=== PATIENT | female | born 1960 | race Caucasian/White ===

== ENCOUNTER 2018-08-09 12:40 | Emergency (ER) | payer OTHER, SELFPAY ==
[2018-08-09 12:49] VITALS: BP 152/81; PULSE 67; RESP 19; O2SAT 100; BMI 29.1
--- NOTE | 2018-08-09 12:52 | DI.RAD.S_ITS ---
PROCEDURE: XR CHEST 1V INDICATIONS: chest pain TECHNIQUE: One view of the chest was acquired. COMPARISON: None. FINDINGS: Surgical changes and devices: None. Lungs and pleura: An incomplete inspiratory result is noted, causing a crowded appearance to the lung markings. No focal infiltrates are seen. No pneumothorax or significant pleural effusions are seen. Mediastinum: Mediastinal contours appear normal. Heart size is normal. Bones and chest wall: No suspicious bony lesions. Overlying soft tissues appear unremarkable. IMPRESSION: Limited portable chest examination, without a significant cardiopulmonary abnormality identified. Dictated by: Samuel Hardy M.D. on 08/09/2018 at 12:13 Approved by: Samuel Hardy M.D. on 08/09/2018 at 12:13
[2018-08-09 13:16] LABS: PTT Partial Thromboplastin Tim 26 SECONDS (26.4-36.2)
[2018-08-09 13:17] LABS: Add Manual Diff / Slide Review NO; Basophils Percent Auto 0.8 % (0-2); Eosinophils Percent Auto 0.8 % (2-4); Hematocrit 40.4 % (36-46); Lymphocytes Percent Auto 22.2 % (25-40); Mean Corpuscular HGB Conc 34.6 % (30-36); Mean Corpuscular Hemoglobin 33.9 PG (26-34); Monocytes Percent Auto 5.9 % (3-14); Neutrophils Absolute Auto 4500 /uL (3000-5900); Neutrophils Percent Auto 70.3 % (50-75); Platelet Count 259 X10^3/uL (150-400); Red Blood Cell Count 4.12 X10^6/uL (4.0-5.2); White Blood Cell Count 6.3 X10^3/uL (4.5-11.0)
[2018-08-09 13:19] LABS: Alanine Aminotransferase 23 IU/L (9-52); Albumin 4.4 g/dL (3.5-5.0); Albumin Globulin Ratio 1.3 (1.0-2.8); Alkaline Phosphatase 47 U/L (38-126); Aspartate Aminotransferase 26 IU/L (14-36); BUN Creatinine Ratio 23.8 (6-22); Bilirubin Total 0.6 mg/dL (0.2-1.3); Blood Urea Nitrogen 19 mg/dL (7-17); Calcium 9.3 mg/dL (8.4-10.2); Carbon Dioxide 32 mmol/L (22-32); Chloride 102 mmol/L (98-107); Creatine Kinase 201 U/L (30-135); Estimated Glomerular Filt Rate > 60.0 mL/min (>60); Globulin 3.3 g/dL (1.7-4.1); Glucose 97 mg/dL (70-100); HEMOLYSIS 18 (0-50); Lipase 94 U/L (23-300); Potassium 3.7 mmol/L (3.4-5.1); Sodium 144 mmol/L (137-145); Total Protein 7.7 g/dL (6.3-8.2)
--- NOTE | 2018-08-09 13:29 | ED_ITS ---
HPI - Chest Pain General Chief Complaint: Chest Pain Stated Complaint: Tightness in chest Time Seen by Provider: 08/09/18 12:54 Source: patient Mode of arrival: ambulatory Limitations: no limitations History of Present Illness HPI narrative: Patient is a 57-year-old female who presents with chest pain off and on for the last 1 month. She is an avid runner it has not stopped her from running. Comes and goes and is mostly on the left side it does not keep her from sleeping it is nonradiating. Sometimes her left arm does her as well but she thinks that might be permanent injury. She was on the phone today with [facility] trying to set up a primary care physician appointment when she told the nurse on the phone of her symptoms she was sent to the ED for further evaluation. She denies any worsening or new chest pain. She does have some discomfort now but it is not bad. complaint: chest pain Onset (ago): week(s) Duration: intermittent Onset: during rest Pain location: left chest Severity: mild Related Data Home Medications Medication Instructions Recorded Confirmed Allergy Medication 1 tab PO DAILY 08/09/18 08/09/18 Calcium 1 tab PO DAILY 08/09/18 08/09/18 Tums 1 dose PO PRN PRN 08/09/18 08/09/18 ibuprofen 1 dose PO PRN PRN 08/09/18 08/09/18 ranitidine HCl 1 dose PO PRN PRN 08/09/18 08/09/18 Allergies Allergy/AdvReac Type Severity Reaction Status Date / Time No Known Drug Allergies Allergy Verified 08/09/18 13:05 Review of Systems Review of Systems GENERAL: Denies chills, fatigue, malaise, fever, sweats, travel HEENT: Denies sinus pain, ear pain, sore throat, difficulty swallowing, neck pain RESPIRATORY: Denies dyspnea, cough, wheezing, hemoptysis, sputum. CARDIOVASCULAR: See HPI GASTROINTESTINAL: Denies nausea, vomiting, abdominal pain, diarrhea, constipation, melena. : Denies dysuria, frequency, incontinence, hematuria, urinary retention, flank pain. MUSCULOSKELETAL: Denies weakness, joint pain, or bony pain SKIN: No rash, no erythema, no pruritus NEUROLOGIC: Denies weakness, dizziness, headache, numbness, change in speech, confusion PSYCHIATRIC: No concerning psychosocial issues. 12 point review of systems is negative except for those stated above and HPI [facility] Medical History Healthy adult (Acute) Family History Mother No problems noted. Social History Smoking Status: Never smoker Exam Initial Vital Signs Initial Vital Signs: Vital Signs Pulse Rate 67 08/09/18 12:49 Respiratory Rate 19 08/09/18 12:49 Blood Pressure 152/81 H 08/09/18 12:49 Pulse Oximetry 100 08/09/18 12:49 GENERAL: Well-appearing, well-nourished and in no acute distress. HEENT: Head atraumatic,EOMI, pupils reactive, face symmetric, moist mucous membranes CARDIOVASCULAR: Regular rate and rhythm without murmurs, rubs or gallops. RESPIRATORY: Breath sounds equal bilaterally, no wheezes rales or rhonchi. ABDOMEN: Soft, nontender. Normoactive bowel sounds all 4 quadrants. No guarding or rebound. : No CVA tenderness EXTREMITIES: Normal range of motion, no clubbing or edema. Neurovascularly intact NEUROLOGICAL: Alert and oriented x4.Normal gait and speech. Cranial nerves II through XII grossly intact. SKIN: Warm, dry, no laceration, no petechiae, no rashes or lesions. Scores HEART Score Heart Score history: Slightly Suspicious Heart Score EKG: Normal Heart Score Age: 45-64 years old Heart Score risk factors: No known risk factors Heart Score troponin: < or = to normal limit Heart Score Total: 1 Course Orders Ordered: ED Orders 08/09/18 12:52 XR chest 1V Stat EKG-12 Lead Stat 08/09/18 12:53 Complete Blood Count AUTO DIFF Stat Comprehensive Metabolic Panel Stat Lipase Stat Partial Thromboplastin Time Stat Prothrombin Time INR Stat Troponin & CK Cardiac Panel Stat Discontinued Medications Pantoprazole Sodium (Protonix) 40 mg IV NOW ONE Stop: 08/09/18 13:28 Last Admin: 08/09/18 13:31 Dose: 40 mg Vital Signs - 8 hr 08/09/18 12:49 08/09/18 14:02 Pulse Rate 67 65 Respiratory Rate 19 14 Blood Pressure 152/81 H Blood Pressure [Left Arm] 119/53 L Pulse Oximetry 100 100 MDM - Chest Pain Lab Data Attestation: I reviewed the patient's lab results. Result diagrams: 08/09/18 12:53 08/09/18 12:53 Lab Results 08/09/18 08/09/18 08/09/18 Range/Units 12:53 12:53 12:53 WBC 6.3 (4.5-11.0) X10^3/uL RBC 4.12 (4.0-5.2) X10^6/uL Hgb 14.0 (12.0-16.0) g/dL Hct 40.4 (36-46) % MCV 98.0 (80-100) fL MCH 33.9 (26-34) PG MCHC 34.6 (30-36) % RDW 13.0 (11.6-14.8) % Plt Count 259 (150-400) X10^3/uL Neut % (Auto) 70.3 (50-75) % Lymph % (Auto) 22.2 L (25-40) % [place] % (Auto) 5.9 (3-14) % Eos % (Auto) 0.8 L (2-4) % Baso % (Auto) 0.8 (0-2) % Neut # (Auto) 4500 (8864-7457) /uL PT 11.0 (10.1-12.7) SECONDS INR 1.0 (0.9-1.3) APTT 26 L (26.4-36.2) SECONDS Sodium 144 (137-145) mmol/L Potassium 3.7 (3.4-5.1) mmol/L Chloride 102 (98-107) mmol/L Carbon Dioxide 32 (22-32) mmol/L BUN 19 H (7-17) mg/dL Creatinine 0.80 (0.52-1.04) mg/dL Estimated GFR > 60.0 (>60) mL/min BUN/Creatinine Ratio 23.8 H (6-22) Glucose 97 (70-100) mg/dL Calcium 9.3 (8.4-10.2) mg/dL Total Bilirubin 0.6 (0.2-1.3) mg/dL AST 26 (14-36) IU/L ALT 23 (9-52) IU/L Alkaline Phosphatase 47 (38-126) U/L Total Creatine Kinase 201 H (30-135) U/L CK-MB (CK-2) 3.98 H (<2.37) ng/mL CK-MB (CK-2) Rel Index 2.0 (1.5-5.0) % Troponin I < 0.012 (0.01-0.034) ng/mL Total Protein 7.7 (6.3-8.2) g/dL Albumin 4.4 (3.5-5.0) g/dL Globulin 3.3 (1.7-4.1) g/dL Albumin/Globulin Ratio 1.3 (1.0-2.8) Lipase 94 (23-300) U/L Imaging Data Chest x-ray: Radiologist's impression: PROCEDURE: XR CHEST 1V INDICATIONS: chest pain TECHNIQUE: One view of the chest was acquired. COMPARISON: None. FINDINGS: Surgical changes and devices: None. Lungs and pleura: An incomplete inspiratory result is noted, causing a crowded appearance to the lung markings. No focal infiltrates are seen. No pneumothorax or significant pleural effusions are seen. Mediastinum: Mediastinal contours appear normal. Heart size is normal. Bones and chest wall: No suspicious bony lesions. Overlying soft tissues appear unremarkable. IMPRESSION: Limited portable chest examination, without a significant cardiopulmonary abnormality identified. Dictated by: Samuel Hardy M.D. on 08/09/2018 at 12:13 ECG Data Attestation: I personally reviewed and interpreted this ECG as follows: Prior ECG tracings: available for review Interpretation: Normal sinus rhythm rate [address] changes or T-wave inversions ID interval 157 QRS 105 QTC 435 no priors to compare MDM Narrative Medical decision making narrative: Patient has a negative troponin. Chest pain consistent with cardiac. She has appointment with a PCP in ever rate. Discharge Plan Departure Patient Disposition: Home Clinical Impression: Atypical chest pain Discharge Date/Time: 08/09/18 14:13 Interventions: ED Discharge Assessment Last Done: 08/09/18 14:13 Instructions: DI for Atypical Chest Pain Activity Restrictions/Additional Instructions: *You have been diagnosed with atypical chest *What to do: May still require further cardiac evaluation and testing but this can be done as an outpatient. Today blood work EKG and chest x-ray within normal limits. *Continue to take medications as directed *Follow up with your primary care provider in 2-3 days *Return to ER if you should have increased or new worsening chest pain or any new, worsening or concerning symptoms Prescriptions: No Action Allergy Medication 1 tab PO DAILY RF: 0 ranitidine HCl 75 mg Tablet 1 dose PO PRN PRN (Reason: Indigestion) RF: 0 ibuprofen 200 mg Tablet 1 dose PO PRN PRN (Reason: pain) RF: 0 Calcium 1 tab PO DAILY RF: 0 Tums 1 dose PO PRN PRN (Reason: Indigestion) RF: 0
[2018-08-09] MEDS: PANTOPRAZOLE 40 MG VIAL IV (13:31)
[2018-08-09 13:34] LABS: Creatine Kinase MB 3.98 ng/mL (<2.37); Troponin I < 0.012 ng/mL (0.01-0.034)
[2018-08-09 14:02] VITALS: BP 119/53; PULSE 65; RESP 14; O2SAT 100
== END 2018-08-09 14:13 | disposition home or self-care (01) ==
PROVIDERS: Emergency Provider Emergency Medicine
DX: R07.89 Other chest pain (principal)
CPT/HCPCS: 36591; 71045; 80053; 82550; 82553; 83690; 84484; 85025; 85610; 85730; 93005; 96374; 99283; 99285; C9113

== ENCOUNTER → 2021-02-07 10:52 | Outpatient (CLI) | payer OTHER, SELFPAY ==
[2021-02-07] MEDS: COVID-19 VACC #1, MRNA(MOD) 100 MCG/0.5 ML VIAL IM (11:01)
== END ==
PROVIDERS: Visit Provider Internal Medicine
DX: Z23 Encounter for immunization (principal)
CPT/HCPCS: 0011A; 91301

== ENCOUNTER → 2021-03-07 12:01 | Outpatient (CLI) | payer OTHER, SELFPAY ==
[2021-03-07] MEDS: COVID-19 VACC #2, MRNA(MOD) 100 MCG/0.5 ML VIAL IM (12:06)
== END ==
PROVIDERS: Visit Provider Internal Medicine
DX: Z23 Encounter for immunization (principal)
CPT/HCPCS: 0012A; 91301

== ENCOUNTER → 2021-08-10 13:26 | Outpatient (CLI) | payer OTHER, SELFPAY ==
[2021-08-10 14:05] LABS: COVID19 -Nasal RAPID Negative (Negative)
== END ==
PROVIDERS: Visit Provider Physician Assistant
DX: Z20.822 Contact with and (suspected) exposure to COVID-19 (principal); R05.9 Cough, unspecified; R51.9 Headache, unspecified
CPT/HCPCS: 87635

== ENCOUNTER → 2024-04-21 14:58 | Outpatient (CLI) | payer OTHER, SELFPAY ==
--- NOTE | 2024-04-21 | DI.RAD.S_ITS ---
PROCEDURE: XR DEXA AXIAL SKELETON INDICATIONS: osteoporosis screening COMPARISON: None. FINDINGS: Lumbar Spine: Bone mineral density 0.857 g/cm2, T score -1.7. Left Hip: Bone mineral density 0.953 g/cm2, T score 0.1. Left Femoral Neck: Bone mineral density is 0.82 g/cm2, T score -0.3. Right Hip: Bone mineral density 0.936 g/cm2, T score 0. Right Femoral Neck: Bone mineral density 0.849 g/cm2, T score 0.0. Fracture Risk Calculation (when applicable): 10-year fracture risk of a major osteoporotic fracture 7.1% and of a hip fracture 0.3%. (T score greater or equal to -1.0 to: NORMAL) (T score from -1.1 to -2.4: OSTEOPENIA) (T score less than or equal to -2.5: OSTEOPOROSIS) IMPRESSION: Osteopenia Follow-up guidelines as follows: Osteoporosis: Consider a repeat DEXA and Vertebral Fracture Assessment (VFA) exam in 2 years or sooner if medically necessary, to reassess this patient's status. Osteopenia: Consider a repeat DEXA in 2-3 years to reassess this patient's status, or if there is a new clinical indication. Normal: Consider a repeat DEXA in 5 years or sooner, or if there is a new clinical indication. All treatment decisions require clinical judgment and consideration of individual patient factors, including patient preferences, comorbidities, previous drug use, risk factors not captured in the FRAX model (e.g., frailty, falls, vitamin D deficiency, increased bone turnover, interval significant decline in bone density ) and possible under- or over-estimation of fracture risk by FRAX. In addition, the NOF Guide recommends that FDA-approved medical therapies be considered in postmenopausal women and men age >= 50 years with a: * Hip or vertebral (clinical or morphometric) fracture * T-score of <=-2.5 at the spine or hip * Ten-year fracture probability by FRAX of >= 3% for hip fracture or >=20% for major osteoporotic fracture. People with diagnosed cases of osteoporosis or at high risk for fracture should have regular bone mineral density tests. For patients eligible for Medicare, routine testing is allowed once every 2 years. The testing frequency can be increased to one year for patients who have rapidly progressing disease, those who are receiving or discontinuing medical therapy to restore bone mass, or have additional risk factors. Dictated by: Quincy Stoddard M.D. on 04/21/2024 at 17:46 Approved by: Quincy Stoddard M.D. on 04/21/2024 at 17:48
== END ==
PROVIDERS: PCP Family Medicine; Referring Provider Physician Assistant; Visit Provider Physician Assistant
DX: Z13.820 Encounter for screening for osteoporosis (principal); M85.88 Other specified disorders of bone density and structure, other site
CPT/HCPCS: 77080

== ENCOUNTER → 2024-12-15 10:43 | Outpatient (CLI) | payer OTHER, SELFPAY ==
--- NOTE | 2024-12-15 10:44 | DI.RAD.S_ITS ---
PROCEDURE: XR RIBS RT MIN 3V W CXR 1V INDICATIONS: fall 4 days ago pain @ lateral breast TECHNIQUE: 2 views of the ribs were acquired, along with a single view chest. COMPARISON: None. FINDINGS: Heart, mediastinum and pulmonary vascular: Heart is normal in size and configuration. Mediastinum is unremarkable. Pulmonary vascular is normal. Lungs: Clear Pleural spaces: Normal-no effusions or pneumothorax. Bones and soft tissues: No right rib fracture identified. Bones are normal IMPRESSION: Normal chest and right ribs Dictated by: Rafael Molina M.D. on 12/16/2024 at 11:31 Approved by: Rafael Molina M.D. on 12/16/2024 at 11:32
--- NOTE | 2024-12-15 10:44 | DI.RAD.S_ITS ---
PROCEDURE: XR TIBIA FUBULA RT 2V INDICATIONS: fall right side, pain proximal fibula TECHNIQUE: 2 views of the tibia and fibula were acquired. COMPARISON: None. FINDINGS: Bones: No fracture or other osseous abnormality. Joints: Mild degenerative change present the patellofemoral tibiofemoral joint. Ankle mortise is normal.. Soft tissues: There is mild diffuse soft swelling IMPRESSION: No fracture or other significant posttraumatic change. Dictated by: Rafael Molina M.D. on 12/16/2024 at 11:32 Approved by: Rafael Molina M.D. on 12/16/2024 at 11:33
== END ==
LOC: RAD 10:44
PROVIDERS: PCP Family Medicine; Referring Provider Physician Assistant; Visit Provider Physician Assistant
DX: S29.9XXA Unspecified injury of thorax, initial encounter (principal); S89.90XA Unspecified injury of unspecified lower leg, initial encounter; W19.XXXA Unspecified fall, initial encounter
CPT/HCPCS: 71101; 73590